=== PATIENT | male | born 1980 | race American Indian/Alaskan Native ===

== ENCOUNTER 2016-07-30 23:16 | Emergency (ER) | payer SELFPAY ==
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
[2016-07-31 04:17] VITALS: BP 150/90
== END 2016-07-31 04:18 | disposition home or self-care (01) ==
LOC: ED 23:16
DX: H66.91 Otitis media, unspecified, right ear (principal)
CPT/HCPCS: 99282

== ENCOUNTER 2018-01-07 19:08 | Emergency (ER) | payer SELFPAY | END 2018-01-07 19:38 | disposition left against medical advice (07) | LOC: ED 19:08 | DX: Z11.3 Encounter for screening for infections with a predominantly sexual mode of transmission (principal); Z53.21 Procedure and treatment not carried out due to patient leaving prior to being seen by health care provider ==